=== PATIENT | male | born 1985 ===

== ENCOUNTER 2018-11-11 11:24 | Emergency (ER) | payer BC ==
[2018-11-11 12:02] VITALS: BP 145/92; PULSE 69; TEMP 98.1; O2SAT 100; BMI 34.7
--- NOTE | 2018-11-11 12:24 | C.PDOC ---
History Of Present Illness 33 y/o male presents to the ED for medical clearance. States yesterday while at work his left eye was swollen, associated with some yellow/white mucous in the eye. Patient was told he could not return to work until checked by a doctor. Today patient reports all symptoms have resolved. He offers no complaints. Denies any eye pain, visual loss, or fever. Time Seen by Provider: 11/11/18 11:46 Chief Complaint (Nursing): Medical Clearance History Per: Patient History/Exam Limitations: no limitations Onset/Duration Of Symptoms: Days (x1) Current Symptoms Are (Timing): Gone Quality: burning Past Medical History Reviewed: Historical Data, Nursing Documentation, Vital Signs Vital Signs: Last Vital Signs Temp 98.1 F 11/11/18 11:35 Pulse 69 11/11/18 11:35 Resp 20 11/11/18 11:35 BP 145/92 H 11/11/18 11:35 Pulse Ox 100 11/11/18 11:35 - Medical History PMH: No Chronic Diseases Family History: States: No Known Family Hx - Social History Hx Alcohol Use: Yes Hx Substance Use: No - Immunization History Hx Tetanus Toxoid Vaccination: No Hx Influenza Vaccination: No Hx Pneumococcal Vaccination: No Review Of Systems Constitutional: Negative for: Fever, Chills Eyes: Positive for: Eyelid Inflammation (now resolved). Negative for: Pain, Vision Change Cardiovascular: Negative for: Chest Pain Respiratory: Negative for: Cough, Shortness of Breath Gastrointestinal: Negative for: Nausea, Vomiting Genitourinary: Negative for: Dysuria Skin: Negative for: Rash Neurological: Negative for: Weakness, Headache, Dizziness Physical Exam - Physical Exam Appears: Well, Non-toxic, No Acute Distress Skin: Normal Color, Warm, Dry, No Rash, No Jaundice Head: Atraumatic, Normacephalic Eye(s): bilateral: Normal Inspection (minimal injection to conjunctiva), PERRL, EOMI Ear(s): Bilateral: Normal Oral Mucosa: Moist Throat: No Erythema, No Exudate Neck: Normal ROM, Supple Chest: Symmetrical, No Tenderness Cardiovascular: Rhythm Regular, No Friction Rub, No Murmur Respiratory: No Accessory Muscle Use, Other (Speaking in complete sentences) Back: Normal Inspection, No CVA Tenderness Extremity: Normal ROM, No Swelling Neurological/Psych: Oriented x3, Normal Speech, Normal Motor Gait: Steady ED Course And Treatment O2 Sat by Pulse Oximetry: 100 (RA) Pulse Ox Interpretation: Normal Medical Decision Making Medical Decision Making: Plan: Patient will be discharged home, provided with work note to return today, as requested. Provided Rx for Tobramycin drops, instructed patient to fill Rx if symptoms recur. Disposition Counseled Patient/Family Regarding: Diagnosis, Rx Given - Disposition Referrals: Carlitos Parkinson MD [Staff Provider] - Disposition: HOME/ ROUTINE Disposition Time: 12:22 Condition: STABLE Additional Instructions: FOLLOW UP WITH THE EYE DOCTOR WITHIN 1-2 DAYS WITHOUT FAIL. RETURN IF WORSENED./ Prescriptions: Tobramycin 0.3% [Tobramycin 5 Ml] 1 drop OU TID #1 bottle Instructions: Conjunctivitis (Pinkeye) (DC) Forms: [facility] (Czech), Work Excuse - POA Present On Arrival: None - Clinical Impression Clinical Impression: Conjunctivitis - PA / [employer] / Resident Statement MD/DO has reviewed & agrees with the documentation as recorded. - Scribe Statement The provider has reviewed the documentation as recorded by the Scribe Emily Torres All medical record entries made by the Josieibdaphney were at my direction and personally dictated by me. I have reviewed the chart and agree that the record accurately reflects my personal performance of the history, physical exam, medical decision making, and the department course for this patient. I have also personally directed, reviewed, and agree with the discharge instructions and disposition.
[2018-11-11 12:37] VITALS: RESP 18
== END 2018-11-11 12:37 | disposition home or self-care (01) ==
LOC: C.ER 11:24
DX: H10.9 Unspecified conjunctivitis (principal)